=== PATIENT | female | born 1970 | race Caucasian/White ===

== ENCOUNTER 2017-04-17 10:12 | Emergency (ER) | payer OTHER ==
[~2017-04-17] VITALS: Ht 172.7 cm; Wt 83.2 kg
[2017-04-17 10:22] VITALS: Ht 172.7 cm; Wt 83.2 kg
[2017-04-17] MEDS ORDERED: ZINC50TA36 PO (11:04)
[2017-04-17] MEDS ORDERED: IBUP1CAP9 PO (11:04)
[2017-04-17] MEDS ORDERED: [UNRECOGNIZED DRUG - CODE] PO (11:04)
[2017-04-17] MEDS ORDERED: SODIUM CHLORIDE 0.9% 500ML 500 ML IV STA (11:23)
[2017-04-17 11:48] LABS: URINE APPEARANCE CLEAR (CLEAR); URINE BILIRUBIN NEG (NEG); URINE COLOR YELLOW; URINE NITRITE NEG (NEG); URINE SPECIFIC GRAVITY 1.006 (1.000-1.030); UROBILINOGEN NEG (NEG); ZZUR CULT IF INDIC CLEAN CATCH NO
[2017-04-17 11:52] LABS: MANUAL MICROSCOPIC REQUIRED? NO; REVIEW REQ? NO
[2017-04-17 11:56] LABS: BASO % 0.2 %; BASO ABS # 0.01 K/uL (0-0.2); COMPLETE YES; HEMATOCRIT 37.5 % (37-47); IG% 0.2 %; LYMPH % 26.7 %; LYMPH ABS # 1.32 K/uL (1.2-3.4); MEAN CELL VOLUME 90.8 fL (80-100); MEAN CORPUSCULAR HEMOGLOBIN 31.7 pg (25-34); MEAN CORPUSCULAR HGB CONC 34.9 g/dl (32-36); MEAN PLATELET VOLUME 10.1 fL (7.4-10.4); MONO % 5.9 %; PLATELET COUNT 215 K/uL (130-400); RED BLOOD COUNT 4.13 M/uL (4.2-5.4); WHITE BLOOD COUNT 4.95 K/uL (4.8-10.8)
--- NOTE | 2017-04-17 12:03 | DIAGNOSTIC IMAGING REPORT ---
HEAD CT NONCONTRAST CT DOSE: 537.48 mGy.cm HISTORY: vertigo, dizziness, headache TECHNIQUE: Multiaxial CT images of the head were performed without the use of intravenous contrast. Automated exposure control was utilized for this study. A dose lowering technique was utilized adhering to the principles of ALARA. Comparison: None. Findings: The paranasal sinuses and mastoid air cells are clear. The calvarium and skull base are intact. The ventricles and sulci are within normal limits. There is no mass, hematoma, midline shift, or acute infarct. Impression: No acute intracranial abnormality. Electronically signed by: Mega Traore M.D. 04/17/2017 12:02 PM Dictated Date/Time: 04/17/2017 11:58 AM
--- NOTE | 2017-04-17 12:04 | DIAGNOSTIC IMAGING REPORT ---
CHEST 2 VIEWS ROUTINE HISTORY: syncope COMPARISON: None. FINDINGS: The lungs are clear. Cardiac silhouette is normal in size. No pleural effusions. No pneumothorax. IMPRESSION: No acute process. Electronically signed by: Mega Traore M.D. 04/17/2017 12:02 PM Dictated Date/Time: 04/17/2017 12:02 PM
[2017-04-17] MEDS ORDERED: KETOROLAC TROMETHAMINE 30 MG/ML VIAL ONE (12:12)
[2017-04-17 12:16] LABS: ALT/SGPT 19 U/L (12-78); AST/SGOT 11 U/L (15-37); BLOOD UREA NITROGEN 14 mg/dl (7-18); BUN/CREATININE RATIO 18.3 (10-20); C-REACTIVE PROTEIN < 0.29 mg/dl (0-0.29); CARBON DIOXIDE 25 mmol/L (21-32); CHLORIDE 108 mmol/L (98-107); CREATININE 0.75 mg/dl (0.60-1.20); GLUCOSE 79 mg/dl (70-99); MAGNESIUM 2.4 mg/dl (1.8-2.4); SODIUM 141 mmol/L (136-145)
[2017-04-17 12:26] LABS: ALB/GLOB RATIO 1.5 (0.9-2); ALKALINE PHOSPHATASE 60 U/L (45-117)
[2017-04-17] MEDS ORDERED: DIAZEPAM INJ 5 MG/ML 2 ML CARP IV STA (13:03)
[2017-04-17] MEDS ORDERED: MECL1TAB42 PO (14:00)
[2017-04-17] MEDS ORDERED: KETO10TA PO (14:00)
--- NOTE | 2017-04-17 14:06 | EMERGENCY ROOM VISIT NOTE ---
History First contact with patient: 10:58 Chief Complaint: VERTIGO Stated Complaint: DIZZINESS,FAINTING,VERTIGO Nursing Triage Summary: patient states she has had a on and off headache and dizziness x1 week. patient states she was tailgating this AM and c/o feeling very dizzy and had a syncapal episode. unsure about loss of consciousness. patient states she only had m&ms this am. had orange juice after syncopal episode. denies alcohol use History of Present Illness The patient is a 46 year old female who presents to the Emergency Room with complaints of vertigo intermittently times one week. She states she has had very intermittent episodes for the past 3 weeks. She states the vertigo lasts for a few minutes, then improves. She has also had migraines over the past several weeks, but states she has had a mild headache all week. The headache she has been experiencing recently are different than her normal headaches. She states they are all over, and she describes them as pressure behind her eyes , worse on the left side. This is new. The patient denies any history of allergic rhinitis or sinusitis. She states yesterday she did begin experiencing cold-like symptoms, and started taking zinc. She states last night , she had an episode of vertigo which lasted approximately 20 minutes. The patient was setting up a tailgate this morning outside in the cold and rain, when all of a sudden, she began experiencing dizziness, and a migraine which came on quickly. She states her walked away, and when he came back, she began feeling very dizzy and like she was going to faint. The patient's dates the patient did pass out for approximately 1 minute. When asked to describe the vertigo, she states it is as if things are shifting to the left in the room is spinning. She states left side of her head feels full behind her eye and her ear. She describes a runny nose, congestion, chills, and a left earache which began approximately 3 days ago. The patient is from [place] , and does have a PCP who she sees yearly. She states in July, she did have labs completed which were all normal. The patient denies any chest pain, dyspnea, abdominal pain, GI symptoms, confusion, or other concerning symptoms. She states she did have some mild blurry vision yesterday while packing her bags to coming here for the weekend. She associates this with some watery eyes. Review of Systems A complete 10 point review of systems was reviewed with the patient with pertinent positives and negatives as per history of present illness. All else were negative. Social History Smoking Status: Never Smoker Current/Historical Medications Scheduled Zinc (Cvs Zinc), 50 MG PO DAILY Scheduled PRN Diclofenac Sod (Diclofenac Sodium ER), 100 MG PO Q12 PRN for . Ibuprofen (Ibuprofen), 200-800 MG PO Q6H PRN for Pain Ketorolac Tromethamine (Toradol), 1 TAB PO TID PRN for Headache Meclizine Hcl (Meclizine Hcl), 1-2 TAB PO TID PRN for Dizziness or Vertigo Physical Exam Vital Signs Date Time Temp Pulse Resp B/P (MAP) Pulse Ox O2 Delivery O2 Flow Rate FiO2 04/17/17 14:24 36.6 79 18 130/72 99 04/17/17 13:55 80 18 133/71 98 04/17/17 13:29 76 04/17/17 13:20 79 12 131/65 98 Room Air 04/17/17 12:33 63 18 127/76 99 04/17/17 10:47 77 18 133/61 87 132/71 87 136/68 04/17/17 10:46 77 04/17/17 10:22 36.6 78 18 152/82 97 Room Air Physical Exam VITALS: Vitals are noted on the nurse's note and reviewed by myself. Vital signs stable. GENERAL: This is a 46 year old female, in no acute distress, nondiaphoretic, well-developed well-nourished. SKIN: The skin was without rashes, erythema, edema, or bruising. There is no tenting of the skin. Capillary reflex less than 2 seconds. HEAD: Normocephalic atraumatic. EARS: External auditory canals clear, tympanic membranes pearly garcia without erythema or effusion bilaterally. EYES: Pupils equal round and reactive to light and accommodation. Conjunctivae without injection, sclerae without icterus. Extraocular movements intact. NOSE: Patent, turbinates without inflammation or discharge. No sinus tenderness. MOUTH: Mucous membranes moist. Tonsils are not enlarged. Pharynx without erythema or exudate. Uvula midline. Airway patent. Tongue does not deviate. NECK: Supple without nuchal rigidity. No lymphadenopathy. No thyromegaly. Cervical spine is nontender. No JVD. HEART: Regular rate and rhythm without murmurs gallops or rubs. LUNGS: Clear to auscultation bilaterally without wheezes, rales or rhonchi. No dullness to percussion. No retractions or accessory muscle use. ABDOMEN: Positive bowel sounds x 4. Normal tympanic percussion. Soft, nontender, without masses or organomegaly. Espinoza sign negative. No guarding or rebound tenderness. MUSCULOSKELETAL: No muscle atrophy, erythema, or edema noted. Full range of motion without joint tenderness in all extremities. No tenderness to palpation. Normal gait. Strength 5/5 throughout. NEURO: Patient was alert and oriented to person place and time. Normal sensation to light and sharp touch. Deep tendon reflexes 2+ throughout. No focal neurological deficits. Medical Decision & Procedures ER Provider Diagnostic Interpretation: CBC was without leukocytosis, anemia, thrombocytopenia. ESR was normal. CRP was without significant electrolyte, renal, hepatic abnormality. Magnesium was normal at 2.4. TSH was normal. Urinalysis did not reveal any signs of infection, hematuria. RADIOLOGY CXR: CHEST 2 VIEWS ROUTINE HISTORY: syncope COMPARISON: None. FINDINGS: The lungs are clear. Cardiac silhouette is normal in size. No pleural effusions. No pneumothorax. IMPRESSION: No acute process. Electronically signed by: Mega Traore M.D. 04/17/2017 12:02 PM Dictated Date/Time: 04/17/2017 12:[address] Head without Contrast: HEAD CT NONCONTRAST CT DOSE: 537.48 mGy.cm HISTORY: vertigo, dizziness, headache TECHNIQUE: Multiaxial CT images of the head were performed without the use of intravenous contrast. Automated exposure control was utilized for this study. A dose lowering technique was utilized adhering to the principles of ALARA. Comparison: None. Findings: The paranasal sinuses and mastoid air cells are clear. The calvarium and skull base are intact. The ventricles and sulci are within normal limits. There is no mass, hematoma, midline shift, or acute infarct. Impression: No acute intracranial abnormality. Electronically signed by: Mega Traore M.D. 04/17/2017 12:02 PM Dictated Date/Time: 04/17/2017 11:58 AM Laboratory Results 04/17/17 11:30 Red Blood Count 4.13, Mean Corpuscular Volume 90.8, Mean Corpuscular Hemoglobin 31.7, Mean Corpuscular Hemoglobin Concent 34.9, Mean Platelet Volume 10.1, Neutrophils (%) (Auto) 66.0, Lymphocytes (%) (Auto) 26.7, Monocytes (%) (Auto) 5.9, Eosinophils (%) (Auto) 1.0, Basophils (%) (Auto) 0.2, Neutrophils # (Auto) 3.27, Lymphocytes # (Auto) 1.32, Monocytes # (Auto) 0.29, Eosinophils # (Auto) 0.05, Basophils # (Auto) 0.01 04/17/17 11:30 Test 04/17/17 11:30 White Blood Count 4.95 K/uL (4.8-10.8) Red Blood Count 4.13 M/uL (4.2-5.4) Hemoglobin 13.1 g/dL (12.0-16.0) Hematocrit 37.5 % (37-47) Mean Corpuscular Volume 90.8 fL (80-100) Mean Corpuscular Hemoglobin 31.7 pg (25-34) Mean Corpuscular Hemoglobin Concent 34.9 g/dl (32-36) Platelet Count 215 K/uL (130-400) Mean Platelet Volume 10.1 fL (7.4-10.4) Neutrophils (%) (Auto) 66.0 % Lymphocytes (%) (Auto) 26.7 % Monocytes (%) (Auto) 5.9 % Eosinophils (%) (Auto) 1.0 % Basophils (%) (Auto) 0.2 % Neutrophils # (Auto) 3.27 K/uL (1.4-6.5) Lymphocytes # (Auto) 1.32 K/uL (1.2-3.4) Monocytes # (Auto) 0.29 K/uL (0.11-0.59) Eosinophils # (Auto) 0.05 K/uL (0-0.5) Basophils # (Auto) 0.01 K/uL (0-0.2) RDW Standard Deviation 40.3 fL (36.4-46.3) RDW Coefficient of Variation 12.2 % (11.5-14.5) Immature Granulocyte % (Auto) 0.2 % Immature Granulocyte # (Auto) 0.01 K/uL (0.00-0.02) Erythrocyte Sedimentation Rate 2 mm/hr (0-21) Urine Color YELLOW Urine Appearance CLEAR (CLEAR) Urine pH 7.0 (4.5-7.5) Urine Specific [place] 1.006 (1.000-1.030) Urine Protein NEG (NEG) Urine Glucose (UA) NEG (NEG) Urine Ketones NEG (NEG) Urine Occult Blood NEG (NEG) Urine Nitrite NEG (NEG) Urine Bilirubin NEG (NEG) Urine Urobilinogen NEG (NEG) Urine Leukocyte Esterase NEG (NEG) Anion Gap 8.0 mmol/L (3-11) Est Creatinine Clear Calc Drug Dose 104.8 ml/min Estimated GFR () 110.0 Estimated GFR (Non- 94.9 BUN/Creatinine Ratio 18.3 (10-20) Calcium Level 9.0 mg/dl (8.5-10.1) Magnesium Level 2.4 mg/dl (1.8-2.4) Total Bilirubin 0.7 mg/dl (0.2-1) Aspartate Amino Transf (AST/SGOT) 11 U/L (15-37) Alanine Aminotransferase (ALT/SGPT) 19 U/L (12-78) Alkaline Phosphatase 60 U/L (45-117) C-Reactive Protein < 0.29 mg/dl (0-0.29) Total Protein 7.4 gm/dl (6.4-8.2) Albumin 4.4 gm/dl (3.4-5.0) Globulin 3.0 gm/dl (2.5-4.0) Albumin/Globulin Ratio 1.5 (0.9-2) Thyroid Stimulating Hormone (TSH) 1.050 uIu/ml (0.300-4.500) Medications Administered Medications (Trade) Dose Ordered Sig/Ladonna Route Start Time Stop Time Status Last Admin Dose Admin Sodium Chloride 500 ml @ 999 mls/hr Q31M STAT IV 04/17/17 11:23 04/17/17 11:53 DC 04/17/17 11:23 999 MLS/HR Ketorolac Tromethamine (Toradol Inj) 30 mg STK-MED ONCE .ROUTE 04/17/17 12:12 04/17/17 12:13 DC 04/17/17 12:12 30 MG Diazepam (Valium Inj) 5 mg NOW STAT IV 04/17/17 13:03 04/17/17 13:04 DC 04/17/17 13:20 5 MG ECG Indication: syncope Rate (beats per minute): 75 Rhythm: normal sinus Findings: no acute ischemic change, no ectopy Comparison ECG Date: no prior available Medical Decision The patient was seen and it is above. Based on her neurological symptoms, and history of migraines and epilepsy in the past, utilizing shared decision-making , we did decide to proceed with a CT scan of the head to rule out mass or intracranial hemorrhage. Labs and imaging studies do not show any abnormalities which could be the cause for her symptoms. While in the emergency department, I did initially offer the patient vertigo medication. She declined, as she wanted to return to the football game. While she was sitting here in the room, the patient did began experiencing a worsening headache. She was given 500 mL of fluid and Toradol for the headache. Approximately 20-30 minutes later, she states the dizziness returned. I did offer her medication for the dizziness and vertigo, and she did oblige at this time. The patient was given Valium for the vertigo. She states she initially became much more dizzy, but then improved. The patient states she continued to feel slightly lousy, but she became simply tired, and states she wanted to go to her friend's house and rest. The patient and her were both in agreement with the patient being discharged at this time. I did offer to try some other medications to help the patient to feel better, and she declines. Discharge instructions were reviewed and the patient was discharged home in good condition. I did discuss the case with Dr. Alcantara, who was in agreement with the assessment and plan. Differential diagnosis includes syncope, vasovagal syncope, migraine, atypical migraine, acute sinusitis, upper respiratory infection, allergic rhinitis, intracranial hemorrhage, malignancy or mass, and others. Medication Reconcilliation Current Medication List: was personally reviewed by me Blood Pressure Screening Patient's blood pressure: Normal blood pressure Impression Primary Impression: Vertigo Additional Impression: Syncope Departure Information Dispostion Home / Self-Care Condition GOOD Prescriptions Ketorolac Tromethamine (TORADOL) 10 Mg Tab 1 TAB PO TID Y for Headache for 5 Days, #15 TAB Prov: Edwina Sanchez, GUSTABO 04/17/17 Meclizine Hcl (MECLIZINE HCL) 25 Mg Tab 1-2 TAB PO TID Y for Dizziness or Vertigo, #60 TAB Prov: Edwina Sanchez PA-C 04/17/17 Referrals No Doctor, Assigned (PCP) Forms WORK / SCHOOL INSTRUCTIONS, HOME CARE DOCUMENTATION FORM, IMPORTANT VISIT INFORMATION Patient Instructions ED Dizziness Syncope Fainting W Pre, ED Fx Comp Vertebral, My [facility] Additional Instructions You were seen in the emergency department today for vertigo, dizziness, and a syncopal episode. Labs and imaging studies did not reveal any significant abnormality as the cause of your symptoms. As discussed, I do suspect a combination of possible sinusitis, dehydration, stress, and possibly related to a migraine. You were given a prescription for meclizine to be taken as directed for dizziness and vertigo. Use Toradol as needed for worsening headache. Please do not exceed the recommended daily dose. Please take this medication with food. Do not take this medication with any other NSAIDs including Advil, Motrin, ibuprofen, Aleve , diclofenac, meloxicam, or others. Please return to the emergency department for any worsening symptoms, dizziness , confusion, visual disturbances, worsening vertigo, or other concerning symptoms. Please follow up with your PCP on Wednesday, and follow closely regarding her symptoms. Problem Qualifiers Additional Impression: Syncope Syncope type: unspecified Qualified Codes: R55 - Syncope and collapse
[2017-04-17 14:24] VITALS: BP 130/72; PULSE 79; TEMP 36.6; O2SAT 99
== END 2017-04-17 14:25 | disposition home or self-care (01) ==
LOC: C.EDB 10:18 → MERGE 10:18 → C.EDA 14:25
DX: R42 Dizziness and giddiness (principal); R55 Syncope and collapse